=== PATIENT | male | born 1950 | race Caucasian/White ===

== ENCOUNTER → 2024-04-15 | Outpatient (CLI) | payer OTHER ==
[2024-04-15] MEDS: REGADENOSON 0.4 MG/5 ML PF SYG IVP ONE (12:02)
--- NOTE | 2024-04-20 11:50 | HMCSR ---
APPROVED REPORT Height: 5 ft 9in Weight: 189 lbs TEST INDICATIONS A FIB AND FLUTTER The imaging protocol used to acquire images was Rest Tc-99m/stress Tc-99m 1 day Consent: The procedure was explained and understood by the patient. Informerd consent was witnessed Samanta Wells RN First, low dose rest was performed then high dose stress. RESTING DATA: The resting ekg shows: RBBB, Atrial Fibrillation Rest SPECT myocardial perfusion imaging was performed in supine position 92 minutes following the int ravenous injection of 12.8 mCi of Tc-99 Sestamibi. Time of rest injection: 09:20: Date: 04/15/2024 Time of rest imagin:52: Date: 04/15/2024 PHARMACOLOGIC STRESS: Pharmacologic stress test was performed by injecting regadenoson 0.4 mg IV push followed by the intra venous injection of 32.1 mCi of Tc-99 Sestamibi. Time of stress injection: 11:26: Date: 04/15/2024 Time of stress imagin:21: Date: 04/15/2024 Heart Rate at time of stress injection: 61 bpm. Gated Stress SPECT was performed 115 minutes after stress injection. The images were gated to evaluate regional wall motion and calculate left ventricular ejection fracti on. STRESS DETAILS Reason for Termination: Infusion complete Stress Symptoms: No chest pain or symptoms Max HR Achieved: 75 bpm % of APMHR Achieved: 51 Max Blood Pressure: 108/77 mmHg Stress ECG: RBBB, Atrial Fibrillation Study quality was good. Lung uptake was Normal. Artifact: No artifact LEFT VENTRICLE The left ventricular ejection fraction was calculated to be 62%.TID = . LV PERFUSION Stress Perfusion Normal IMPRESSION Normal pharmacologic nuclear stress test. Conclusion Normal [id number] stress test with an LVEF of 62%. No ischemia.
== END | disposition home or self-care (01) ==
LOC: SHCH 08:36
PROVIDERS: ATTEND Student in an Organized Health Care Education/Training Program
DX: I48.0 Paroxysmal atrial fibrillation (principal); I48.91 Unspecified atrial fibrillation; I45.10 Unspecified right bundle-branch block; I48.92 Unspecified atrial flutter
CPT/HCPCS: 78452; 93017; J2785; A9500 ×2